=== PATIENT | male | born 1965 | race Two or more races ===

== ENCOUNTER 2024-09-28 10:53 | Emergency (ER) | payer OTHER ==
[2024-09-28 11:08] VITALS: BP 161/99; PULSE 87; RESP 18; TEMP 97.7; BMI 27.8
[2024-09-28] MEDS ORDERED: SODIUM CHLORIDE 0.9% 500 ML INFUS.BAG IV ONE ×2 (11:54→13:37)
[2024-09-28 12:23] LABS: ABSOLUTE IMMATURE GRANULOCYTES 0.04 x10^3/uL (0.0-0.031); BASOPHILS # 0.02 x10^3/uL (0.01-0.08); HEMATOCRIT 39.9 % (40.1-51.0); HEMOGLOBIN 13.9 g/dL (13.7-17.5); MCHC 34.8 g/dl (32.3-36.5); MEAN CELL VOLUME 83.5 fl (79.0-92.2); MEAN PLT VOLUME 9.7 fl (9.4-12.4); MONOCYTE # 0.75 x10^3/uL (0.30-0.82); MONOCYTE % 6.7 % (5.3-12.2); PLATELET COUNT 262 x10^3/uL (163-337); RDW 13.4 % (12.2-16.1)
[2024-09-28] MEDS: SODIUM CHLORIDE 1,000 ML IV SCH (12:27)
[2024-09-28 12:34] LABS: EPI CELLS 7 /uL (0-25.1); HYALINE CASTS 0 /uL (0-3.1); URINE APPEARANCE CLEAR; URINE BACTERIA 9 /uL (0-1359); URINE BILIRUBIN NEGATIVE (NEGATIVE); URINE COLOR YELLOW; URINE GLUCOSE (UA) NEGATIVE (NEGATIVE); URINE KETONE NEGATIVE (NEGATIVE); URINE LEUK ESTERASE NEGATIVE (NEGATIVE); URINE NITRITE NEGATIVE (NEGATIVE); URINE PROTEIN 1+ (NEGATIVE); URINE RBC 3687 /uL (0-23.9); URINE UROBILINOGEN 0.2 mg/dL (0.2-1.0); URINE WBC 17 /uL (0-25.8)
[2024-09-28 12:41] LABS: POTASSIUM 4.2 mmol/L (3.5-5.1)
[2024-09-28 12:43] LABS: CALCIUM 9.2 mg/dL (8.5-10.1)
[2024-09-28 12:44] LABS: ALBUMIN 4.3 g/dl (3.4-5.0); BLOOD UREA NITROGEN 13.8 mg/dL (7-18)
[2024-09-28 12:48] LABS: BILIRUBIN,TOTAL 1.4 mg/dL (0.2-1); TOT PROT 7.5 g/dl (6.4-8.2)
[2024-09-28] MEDS: LIDOCAINE HCL 2% JELLY 10 ML CARTRIDGE UR ONE (12:54)
[2024-09-28] MEDS: SODIUM CHLORIDE 0.9% 500 ML INFUS.BAG IV ONE (14:13)
== END 2024-09-28 15:36 | disposition home or self-care (01) ==
LOC: JER 10:53
PROC: 0T9B70Z Drainage of Bladder with Drainage Device, Via Natural or Artificial Opening (ICD-10-PCS; principal; 2024-09-28)
DX: R33.9 Retention of urine, unspecified (principal); R10.30 Lower abdominal pain, unspecified
CPT/HCPCS: 36415; 80053; 81003; 82550; 82553; 85025; 87086; 99283-25

== ENCOUNTER 2024-10-02 05:21 | Emergency (ER) | payer OTHER ==
[2024-10-02 05:30] VITALS: RESP 18; TEMP 98.6; BMI 27.9
[2024-10-02 06:12] VITALS: BP 123/77; PULSE 86
[2024-10-02 06:18] LABS: EPI CELLS 2 /uL (0-25.1); HYALINE CASTS 0 /uL (0-3.1); URINE APPEARANCE CLEAR; URINE BILIRUBIN NEGATIVE (NEGATIVE); URINE COLOR YELLOW; URINE GLUCOSE (UA) NEGATIVE (NEGATIVE); URINE KETONE NEGATIVE (NEGATIVE); URINE LEUK ESTERASE TRACE (NEGATIVE); URINE NITRITE POSITIVE (NEGATIVE); URINE PROTEIN NEGATIVE (NEGATIVE); URINE RBC 23 /uL (0-23.9); URINE UROBILINOGEN 0.2 mg/dL (0.2-1.0); URINE WBC 26 /uL (0-25.8)
[2024-10-02 10:28] LABS: URINE BACTERIA 1104.9 /uL (0-1359)
== END 2024-10-02 06:50 | disposition home or self-care (01) ==
LOC: JER 05:21
PROC: 0T9B70Z Drainage of Bladder with Drainage Device, Via Natural or Artificial Opening (ICD-10-PCS; principal; 2024-10-02)
DX: N40.1 Benign prostatic hyperplasia with lower urinary tract symptoms (principal); R33.8 Other retention of urine; R10.30 Lower abdominal pain, unspecified; R14.0 Abdominal distension (gaseous)
CPT/HCPCS: 81003; 87086; 87186; 99283-25